=== PATIENT | female | born 1985 | race Caucasian/White ===

== ENCOUNTER 2018-04-25 01:22 | Outpatient (CLI) | payer BC, SELFPAY ==
--- NOTE | 2018-04-25 13:43 | DI.REPORT_ITS ---
SYMPTOM/DIAGNOSIS: ABD WALL MASS, R22.2, S/P C SECTION, LUMP AND PAIN ABDOMINAL WALL ULTRASOUND: Sonographic evaluation of the anterior abdominal wall was performed. Beneath the section scar, there are fluid collections present. On the right, there are two hypoechoic mixed echogenicity regions that appear to communicate with each other. The larger measures 6 by 7 by 4 mm. The smaller measures 4 by 5 by 4 mm. No internal blood flow is seen. In the left anterior abdominal wall at the level of the section scar, there is a hypoechoic, irregular fluid collection present. The area tracks to the skin surface. No internal blood flow is seen. SUMMARY: Fluid collection seen in the region of the section scars over the lower anterior abdominal wall. These may represent small hematomas or seromas. Abscesses are considered less likely but cannot be entirely excluded.
== END 2018-04-25 01:23 ==
PROVIDERS: PCP Family Medicine; Visit Provider Obstetrics & Gynecology Gynecology
DX: R22.2 Localized swelling, mass and lump, trunk (principal); O90.2 Hematoma of obstetric wound
CPT/HCPCS: 76705

== ENCOUNTER 2018-05-04 11:07 | Outpatient (CLI) | payer BC, SELFPAY ==
[2018-05-04 12:02] LABS: HCT 39.1 % (36.0-46.0); HGB 13.3 g/dL (12.0-15.5); Mean Corpuscular Hemoglobin 28.8 pg (27.0-33.0); Mean Corpuscular Volume 84.6 fL (80-95); Mean Platelet Volume 10.2 fL (8.0-11.0); Platelet Count 283 x1000/uL (130-400); RBC 4.62 m/cumm (4.00-5.20); RBC Distribution Width 13.2 % (11.7-14.6); White Blood Cell Count 6.38 k/cumm (4.4-10.8)
== END 2018-05-04 11:08 ==
PROVIDERS: PCP Family Medicine; Visit Provider Obstetrics & Gynecology Gynecology
DX: R23.8 Other skin changes (principal)
CPT/HCPCS: 36415; 85027